=== PATIENT | female | born 1950 | race Caucasian/White ===

== ENCOUNTER 2017-03-08 10:50 | Day surgery (SDC) | payer MEDICARE, OTHER ==
--- NOTE | 2017-03-07 16:38 | PCM.HPANE ---
Patient Data Surgeon Admitting Provider: Attending Provider:Cal Herbert MD Primary Care Physician:Elliot Medrano MD Other Provider:Shaan Hidalgo Anesthesia Reason for Visit Screening Ht/WT & BMI Body Mass Index Allergies Coded Allergies: No Known Drug Allergies (Verified Allergy, Unknown, 03/08/17) Past Anesthesia History Anesthesia History: Denies:: Abnormal Airway, Anesthesia Reactions, Difficult Intubation, Fam Anesthesia Reaction, Fam Malignant Hypertherm, Malignant Hyperthermia Diabetes History Hx Diabetes?: Yes (Type II controlled w/ diet/exercise) MRSA MRSA: No Medications Reported Medications Simvastatin (Zocor)20 Mg Yclxlh37 Mg PO HS 30 Days Ref 0 03/08/17 Ubidecarenone (Co Q-10)50 Mg Vlhodcf51 Mg PO DAILY 03/03/17 Metformin 500 Mg Kcoqzn572 Mg PO BID Ref 0 03/03/17 Levothyroxine (Synthroid)175 Mcg Uafekx496 Mcg PO DAILY Ref 0 03/03/17 Levothyroxine (Synthroid)150 Mcg Djzgfc312 Mcg PO DAILY Ref 0 03/03/17 Gluc/Beto-MSM#1/C/Jesus/Neftaly/Bor (Osteo Bi-Flex Caplet)1 Each Tablet1 Each PO DAILY 03/03/17 Diltiazem 120 Mg Pvkrgm170 Mg PO BID 03/03/17 Calcium Carbonate (Tums)500 Mg Tab.zbtt628 Mg PO PRN PRN For Dyspepsia or Heartburn 30 Days 03/03/17 Azathioprine 50 Mg Ehljio80 Mg PO DAILY Ref 0 03/03/17 Ascorbic Acid (Vitamin C)1,000 Mg Tab.chew1,000 Mg PO DAILY Ref 0 03/03/17 Sitagliptin Phos (Januvia)50 Mg Ekpjfq73 Mg PO DAILY Ref 0 03/03/17 [C-Triestr/Prog] No Conflict Check Top Daily 11/19/13 [B Complex] No Conflict Check Po Daily 11/19/13 [Amino Acids] No Conflict Check Mg PO DAILY 11/19/13 Discontinued Reported Medications Diltiazem-Expunged Drug, Do Not Renew! 120 Mg Ieokzy805 Mg PO BID 11/19/13 metroNIDAZOLE-Expunged Drug, Do Not Renew! (Metrogel-Expunged Drug, Do Not Renew !)1 Applic/0.25 Gm Gel Top Daily 11/19/13 Ubidecarenone (Coq10)50 Mg Tab.chew50 Mg PO DAILY 11/18/13 Ascorbic Acid-Expunged Drug, Do Not Renew! (Vitamin C-Expunged Drug, Do Not Renew!)1,000 Mg Tab.chew1,000 Mg PO DAILY 11/18/13 Calcium Carbonate-Expunged Drug, Do Not Renew (Tums Chewable-Expunged Drug, Do Not Renew!)500 Mg Tablet3 Tab PO TIDWM 11/18/13 Glucosamine/D3/Boswellia Dominique (Osteo Bi-Flex Caplet)1 Each Tablet1 Each PO BID 11/18/13 Levothyroxine-Expunged Drug, Do Not Renew! (Synthroid-Expunged Drug, Do Not Renew!)150 Mcg Phgtdd227 Mcg PO EVERY OTHER DAY #30 TAB Ref 0 0.15 MG = 150 MCG 11/18/13 Metformin-Expunged Drug, Do Not Renew! 1,000 Mg Gysgtl009 Mg PO BID CONTRAINDICATED: MALES SrCr 1.5 OR GREATER; FEMALES SrCr 1.4 ORGREATER ORCrCl<60; HOLD METFORMIN 48 HOURS AFTER IV CONTRAST ADMINISTRATION. 11/12/13 Simvastatin-Expunged Drug, Choose New Med! 20 Mg Lodfks21 Mg PO HS 11/12/13 Azathioprine-Expunged Drug, Do Not Renew! 50 Mg Rwfjwa80 Mg PO DAILY 11/12/13 Levothyroxine-Expunged Drug, Do Not Renew! (Synthroid-Expunged Drug, Do Not Renew!)175 Mcg Jgg889 Mcg PO #30 TAB Ref 0 11/12/13 History History of ENT Problems?: Yes HEENT History: Positive for:: Sinus Problem (PND) Denies:: Cataracts Dysphagia Denture Type: None Teeth Condition: Within Normal Limits Hx of Heart Problems?: Yes Cardiovascular History: Positive for:: Cardiac Surgery (sternotomy, thymectomy in 97') Chest Pain (poss caused from arrythmia, SVT) Hypertension (currently, poss d/t stress, not being medically treated) Irregular Heartbeat (SVT, current admit) Denies:: Edema Heart Murmur Pacemaker Thrombophlebitis Hx of Respiratory Problem?: Yes Respiratory History: Positive for:: Chest Surgery (sternotomy 97') Denies:: Asthma COPD Dyspnea Emphysema Hemoptysis Pneumonia Tuberculosis Hx Neurologic Problems?: Yes Neurological History: Positive for:: Dizziness (w/ arrythmia) Headaches (w/ arrythmia) Parkinson's Disease Denies:: Alzheimer's Disease CVA Dementia Seizures Hx of GI Problems?: Yes Hx of Problems?: Yes Genitourinary History: Denies:: HX of Hemodialysis Kidney Stones Urinary Tract Infection HX of Peritoneal Dialysis: No Female Hx: Denies:: Currently Endometriosis Pelvic Inflammatory Problems with Breasts? Hx Musculoskeletal Problems?: Yes Musculoskeletal History: Positive for:: Back Injury (L4 & L5 blown discs) Denies:: Joint Replacement Musculoskeletal Trauma Hx of Psycho/Social Problems?: Yes Psycho Social History: Positive for:: Anxiety (panic attack x 1- 97') Hx Depression (not medicated, friends/family) Denies:: Bipolar Disorder Suicide Attempt Hx Surgeries?: Yes (thyroidectomy 78', sternotomy 97') Hx Any Other Health Problems?: Yes Other History: Positive for:: Endocrine Disease Hospitalization Thyroid Disease (Thyroidectomy, Eveline's Thyroiditis) Denies:: Cancer (precancerous facial mole only ) History Blood Transfusions: Denies:: Blood Transfuse Reaction Blood Transfusions Hx Diabetes: Yes (Type II controlled w/ diet/exercise) Hx Alcohol Use: NoHx Substance Use: No Stop/Bang Risk Assessment Category Category 1A: Patient has history of documented sleep apnea, and HAS NOT received any narcotic, sedative or anesthesia administration during this stay. Category 1B: Patient has history of documented sleep apnea, and HAS received any narcotic , sedative or anesthesia administration during this stay Category 2: Patient has SUSPECTED Obstructive Sleep Apnea, and HAS received any narcotic , sedative or anesthesia administration during this stay. Category 3: Patient has SUSPECTED Obstructive Sleep Apnea and HAS NOT received narcotic, sedative or anesthesia administration during this stay. Category 4: Outpatient in Procedural Areas with known sleep apnea or who screen positive for High Risk via the STOP/BANG questionnaire. Exam Exam General Appearance: Alert, Oriented X3, Cooperative HEENT/AIRWAY: MP 2, Neck Movement (FROM), Mouth Opening (WNL) Lungs: Clear to Auscultation Heart: Exam Unremarkable Plan Impression Patient chart reviewed, patient interviewed and anesthestic plan with risks, benefits, and alternatives discussed, and informed consent obtained. ASA Physical Status: ASA2 Mod Systemic Disease Anesthetic Plan: GA Bene/Risks/Altern/Consents: Yes HP Complete Prior to Induction: Yes Delroy Jaeger MD March 07, 2017 16:38
[~2017-03-08] VITALS: Ht 162.6 cm; Wt 80.0 kg
[~2017-03-08 10:50] MED LIST: AMINO ACIDS PO; ASCO100089 PO; AZTH50T PO; B COMPLEX PO; CALC500T9 PO; DILT120T3 PO; GLUC-181 PO; LEVO175T2 PO; Lactated Ringer's 1,000 ML IV SCH; METF500T4 PO; SITA50TA PO; SYN.15T2 PO; UBID50CA25 PO; [UNRECOGNIZED DRUG - OTHER] TOP
[2017-03-08] MEDS ORDERED: Propofol 10,000 mCg/mL 20 mL Inj ONE (10:51)
[2017-03-08] MEDS ORDERED: fentaNYL-PF 50 mCg/mL 2 mL Inj ONE (10:51)
[2017-03-08 11:39] VITALS: BP 127/71; PULSE 78; RESP 16; O2SAT 97
[2017-03-08] MEDS ORDERED: SIMV20TA PO (11:39)
[2017-03-08] MEDS ORDERED: Lactated Ringer's 1,000 ML IV SCH (12:23)
--- NOTE | 2017-03-08 12:24 | PCM.ANEP1 ---
Post Anesthesia PACU Phase 1 Assessment Vital Signs Vital Signs Date Time Temp Pulse Resp B/P Pulse Ox O2 Delivery O2 Flow Rate FiO2 03/08/17 11:39 78 16 127/71 97 Room Air Anesthetic Administered: GA Level of Alertness: Awake, talking LAY's with Equal Strength: Yes Pain: No Nausea or Vomiting: No CV Function & Hydration Stable: Yes Airway Device: Oxygen Delivery: Room Air Lungs: Normal Air Movement PACU Phase 2 Assessment Complications: No Follow up Care: No Patient Instructions Provided: N/A Delroy Jaeger MD March 08, 2017 12:24
[2017-03-08 12:25] VITALS: BP 113/69; PULSE 75; RESP 17; O2SAT 97
[2017-03-08] MEDS ORDERED: Ondansetron 2 mg/mL 2 mL Inj IVPUSH PRN (12:25)
[2017-03-08] MEDS ORDERED: MetoCLOpramide 5 mg/mL 2 mL Inj IVPUSH PRN (12:25)
[2017-03-08 12:40] VITALS: BP 119/64; PULSE 74; RESP 16; O2SAT 97
--- NOTE | 2017-03-08 13:26 | ENDO ---
[address] [address] ENDOSCOPY PROCEDURE PATIENT: BUTCH HERNANDEZ : 1950 MR#: [id number] ADMIT: 03/08/2017 JOB ID: [id number] DATE OF SERVICE: 03/08/2017 PRIMARY CARE PHYSICIAN: Elliot Medrano MD PROCEDURE: Colonoscopy (incomplete). INDICATION: The patient is a 66-year-old woman whose most recent colonoscopy was in 2004. EQUIPMENT: [employer]. SEDATION: Per Anesthesia. PREPARATION QUALITY: Inadequate. (There was thick stool covering more than 75% of the mucosa that was progressively worse as the scope was advanced. Therefore, the case was aborted.) COMPLICATIONS: None identified. PROCEDURE INFORMATION: The patient was brought into the endoscopy suite and placed in left lateral decubitus position. Sedation was achieved per the anesthesiologist. Digital rectal exam was performed and unremarkable. The scope was introduced through the anus and advanced through to the transverse colon. Immediately upon entering the anus, there was thick green stool. This was covering a minority of the rectal mucosa. However, as the scope was advanced, this became thicker and more prevalent. In the transverse colon, the entire mucosa was opacified. I, therefore, elected to abort the case. The scope was then slowly withdrawn. No polyps were identified. However, the majority of the mucosa was obscured. The patient tolerated the entire procedure well without evident complication. FINDINGS: Incomplete colonoscopy due to inadequate preparation. RECOMMENDATION: I advised the patient that she will need a repeat study within the next month or so. KRISTI
== END 2017-03-08 23:59 | disposition home or self-care (01) ==
LOC: END 10:50
PROVIDERS: ATTEND General Practice
DX: Z12.11 Encounter for screening for malignant neoplasm of colon (principal); Z53.8 Procedure and treatment not carried out for other reasons; Z80.0 Family history of malignant neoplasm of digestive organs; I10 Essential (primary) hypertension; E03.9 Hypothyroidism, unspecified; E06.3 Autoimmune thyroiditis; E11.9 Type 2 diabetes mellitus without complications; R00.2 Palpitations; E78.5 Hyperlipidemia, unspecified; G70.00 Myasthenia gravis without (acute) exacerbation; E66.9 Obesity, unspecified; Z79.84 Long term (current) use of oral hypoglycemic drugs
CPT/HCPCS: G0105; J2250; J3010; J7120